=== PATIENT | male | born 1980 | race Caucasian/White ===

== ENCOUNTER 2021-05-02 22:45 | Emergency (ER) | payer OTHER ==
[~2021-05-02] VITALS: Ht 177.8 cm; Wt 121.6 kg
[~2021-05-02 22:45] MED LIST: ALBUTEROL; AMOCLA875 PO; AMOX500 PO; ANTOXYBENA RIGHTEAR; AZIT250 PO; CATHETER; CEPH500 PO; CIPR500 PO; CIPRO500 MG PO; CLON.1 PO; CRUTCH3 XX; CYCL10 PO; Ciprodex Otic7.5 ML RIGHTEAR; Crutch1 EACH MISC; Diclofenac Pota50 MG PO; FLUT.05NI; HYDACE10B PO; HYDACE5 PO; HYDR1TAB94 PO; IBUP600 PO; IBUP800 PO; IBUPROFEN; Inderal 20 mg T20 MG PO; LEVO750 PO; LIDO2TG30 TOP; MELO7.5 PO; MIRT15 PO; NEOPOLHCSU OT; NORCO; Norco 5-325 Ta1 EACH PO; OXYACE5T PO; PHENY100ER; PHENY100ER PO; PHENYTOIN; Prednisone20 MG PO; QUET25 PO; RXAMOX500 PO; RXERYTOPTH OP; RXHYD5325 PO; RXHYDACE PO; RXLORA1 PO; RXNEOPOLHC AS; SEPTRA DS PO; SERT25 PO; SERT50 PO; SULTRIDS PO; Seroquel Xr150 MG PO; TOPI25 PO; TOPIRAMATE PO; Tamiflu75 MG PO; Zofran Odt4 MG SL
[2021-05-03 00:26] LABS: Source, Urine Catheter
[2021-05-03 00:30] LABS: Bilirubin, Urine Neg (Neg); Blood, Urine 5+ (Neg); Glucose Qualitative, Urine Neg (Neg); Ketones, Urine Neg (Neg); Leukocyte Esterase, Urine 3+ (Neg); Nitrite, Urine Pos (Neg); Protein, Urine 3+ (Neg); Urobilinogen, Urine NORM (Normal)
[2021-05-03] MEDS ORDERED: SULTRIDS PO (00:32)
[2021-05-03] MEDS ORDERED: CEPH500 PO (00:32)
[2021-05-03 00:43] LABS: Appearance, Urine Hazy (Clear); Color, Urine Yellow (P-Yellow)
[2021-05-03 00:53] LABS: Bacteria Mod /hpf; Red Blood Cells, Urine TNTC /hpf (0-2); Squamous Epithelial Cells Not Seen /hpf (Few)
== END 2021-05-03 00:55 | disposition home or self-care (01) ==
LOC: ER 22:45
PROVIDERS: Physician Assistant
DX: T83.511A Infection and inflammatory reaction due to indwelling urethral catheter, initial encounter (principal); N39.0 Urinary tract infection, site not specified
CPT/HCPCS: 51102; 81001; 87086; 99283-25; A9270